=== PATIENT | female | born 1935 | race Caucasian/White ===

== ENCOUNTER 2017-01-06 13:02 | Emergency (ER) | payer MEDICARE ==
[2017-01-06 13:57] LABS: Blood, Urine Negative (Negative); Clarity Clear (Clear); Glucose, Urine (Dipstick) Negative (Negative); Leukocyte Negative (Negative); Nitrite Negative (Negative); Protein, Urine (Dipstick) Negative (Neg-Trace); Specific Gravity, Urine 1.025 (1.005-1.030); Urobilinogen 0.2 mg/dL (0.2-1.0); pH, Urine 5.5 (5.0-9.0)
[2017-01-06 13:59] LABS: Bilirubin Negative (Negative); Icto Negative (Negative)
== END 2017-01-06 14:41 | disposition home or self-care (01) ==
LOC: NAV ERS 13:02
DX: R33.9 Retention of urine, unspecified (principal); I25.10 Atherosclerotic heart disease of native coronary artery without angina pectoris; E03.9 Hypothyroidism, unspecified; K21.9 Gastro-esophageal reflux disease without esophagitis; E78.5 Hyperlipidemia, unspecified; E78.00 Pure hypercholesterolemia, unspecified; I10 Essential (primary) hypertension; M10.9 Gout, unspecified; I49.9 Cardiac arrhythmia, unspecified; Z79.899 Other long term (current) drug therapy
CPT/HCPCS: 51702; 81003; 87086

== ENCOUNTER 2017-01-11 18:31 | Emergency (ER) | payer MEDICARE ==
[2017-01-11 19:50] LABS: Blood, Urine Large (Negative); Clarity Hazy (Clear); Glucose, Urine (Dipstick) Negative (Negative); Leukocyte Trace (Negative); Nitrite Negative (Negative); Protein, Urine (Dipstick) > or equal to 300 mg/dL (Neg-Trace); Specific Gravity, Urine 1.025 (1.005-1.030); Urobilinogen 0.2 mg/dL (0.2-1.0); pH, Urine 5.5 (5.0-9.0)
[2017-01-11 19:54] LABS: Anion Gap 16 mmol/L (10-20); BUN (Urea Nitrogen) 20 mg/dL (9.8-20.1); Calc. Creatinine Clearance 0 mL/min (70-130); Calcium 9.1 mg/dL (7.8-10.44); Carbon Dioxide 22 mmol/L (23-31); Chloride 106 mmol/L (98-107); Estimated GFR-MDRD 78; Glucose 98 mg/dL (83-110); Potassium 3.5 mmol/L (3.5-5.1); Sodium 140 mmol/L (136-145)
[2017-01-11 19:58] LABS: Icto Negative (Negative); RBC/HPF GREATER THAN 50-TNTC HPF (0-3); Squamous Epithelial 0-3 HPF (0-3); WBC/HPF 0-3 HPF (0-3)
== END 2017-01-11 20:04 | disposition home or self-care (01) ==
LOC: NAV ERS 18:31
DX: T83.098A Other mechanical complication of other urinary catheter, initial encounter (principal); I25.10 Atherosclerotic heart disease of native coronary artery without angina pectoris; E03.9 Hypothyroidism, unspecified; K21.9 Gastro-esophageal reflux disease without esophagitis; E78.5 Hyperlipidemia, unspecified; I10 Essential (primary) hypertension; Z79.899 Other long term (current) drug therapy
CPT/HCPCS: 80048; 81003; 81015; 99283

== ENCOUNTER 2017-01-23 10:02 | Outpatient (CLI) | payer MEDICARE ==
[2017-01-23 12:24] LABS: #Basophils 0.1 thou/uL (0.0-0.2); #Eosinphils 0.2 thou/uL (0.0-0.7); #Lymphocytes 1.8 thou/uL (1.20-3.40); #Monocytes 0.7 thou/uL (0.11-0.59); #Neutrophils 4.5 thou/uL (1.40-6.50); %Basophils 1.5 % (0.0-1.0); %Eosinophils 2.9 % (0.0-10.0); %Lymphocytes 24.7 % (21.0-51.0); %Monocytes 9.1 % (0.0-10.0); %Neutrophils 61.8 % (42.0-75.0); Hemoglobin 12.8 g/dL (12.0-16.0); Mean Corpuscular HGB CONC 31.7 g/dL (32.0-36.0); Mean Corpuscular Hemoglobin 27.5 pg (27.0-31.0); Mean Corpuscular Volume 86.5 fl (81.0-99.0); Mean Platelet Volume 5.8 fL (7.4-10.4); Platelet Count 236 thou/uL (130-400); RBC Distribution Width 12.9 % (11.5-14.5); Red Blood Cell (RBC) Count 4.66 mill/uL (4.20-5.40); White Blood Cell (WBC) Count 7.3 thou/uL (4.8-10.8)
[2017-01-23 12:45] LABS: ALT (SGPT) 42 U/L (8-55); AST (SGOT) 27 U/L (5-34); Albumin 4.2 g/dL (3.4-4.8); Alkaline Phosphatase 126 U/L (40-150); Anion Gap 16 mmol/L (10-20); BUN (Urea Nitrogen) 14 mg/dL (9.8-20.1); Bilirubin, Direct 0.3 mg/dL (0.1-0.3); Bilirubin, Total 0.5 mg/dL (0.2-1.2); Calc. Creatinine Clearance 0 mL/min (70-130); Calcium 9.3 mg/dL (7.8-10.44); Carbon Dioxide 22 mmol/L (23-31); Cardiac Risk 2.1 (Less than 4.5); Chloride 109 mmol/L (98-107); Cholesterol 174 mg/dl (< 200 Desired); Estimated GFR-MDRD 80; Glucose 71 mg/dL (83-110); HDL Cholesterol 81 mg/dL (>60 Neg Risk); LDL Cholesterol, Calculated 79 mg/dL; Potassium 4.3 mmol/L (3.5-5.1); Protein, Total 6.6 g/dL (6.0-8.3); Sodium 143 mmol/L (136-145); Triglycerides 70 mg/dL (Less than 150)
[2017-01-23 13:34] LABS: Hemoglobin A1c 5.6 % (4.0-6.0)
== END 2017-01-23 10:03 ==
LOC: NAVSJIPCSP 10:02
PROVIDERS: ATTEND Family Medicine
DX: E78.00 Pure hypercholesterolemia, unspecified (principal); E03.9 Hypothyroidism, unspecified; I10 Essential (primary) hypertension; Z79.899 Other long term (current) drug therapy
CPT/HCPCS: 36415; 80048; 80061; 80076; 83036; 84443; 85025

== ENCOUNTER 2018-01-20 07:26 | Outpatient (CLI) | payer MEDICARE ==
--- NOTE | 2018-01-20 16:59 | ULT ---
SONOGRAM RIGHT UPPER QUADRANT: HISTORY: Upper abdomen pain. Palpable mass. FINDINGS: A heterogeneously hypoechoic lesion, superficial to the anterior abdominal wall and region of palpabl e area, is 1.8 cm in length x 0.9 cm in width x 0.9 cm in depth. The gallbladder has a normal appearance. The common duct is 0.5 cm. the liver is unremarkable. No free fluid. Cyst of the right kidney measures up to 3.9 cm. IMPRESSION: 1. Lesion deep within the subcutaneous tissues of the upper anterior abdomen and region of palpable concern may represent herniation of intraabdominal fat. CT abdomen with contrast could be used for b lita characterization. 2. Right renal cyst. POS: [facility]
== END 2018-01-20 07:27 | disposition home or self-care (01) ==
LOC: NAV ULT 07:26
PROVIDERS: ATTEND Family Medicine
DX: R19.06 Epigastric swelling, mass or lump (principal); N28.1 Cyst of kidney, acquired; R93.3 Abnormal findings on diagnostic imaging of other parts of digestive tract
CPT/HCPCS: 76705

== ENCOUNTER 2018-08-15 15:03 | Emergency (ER) | payer MEDICARE ==
--- NOTE | 2018-08-15 16:23 | RAD ---
0849 ACUTE ABDOMINAL SERIES FRONTAL VIEW CHEST TWO VIEW ABDOMEN 08/15/18 INDICATION: Constipation, pain. FINDINGS: There is enlargement of the cardiac silhouette notably at the level of the right atrium. There is a s uperimposed density that may relate to moderate sized hiatal hernia, as well. Vascular calcification and evidence of prior sternotomy. The lungs are hyperinflated. No free air seen beneath the hemidiaph ragms. Bowel gas pattern is nonobstructed. There is extensive hardware overlying the lumbar spine and diffuse osseous degenerative change. IMPRESSION: CHF. Possibility of superimposed moderate sized hiatal hernia suggested. COPD. Nonobstructive bowel gas pattern. POS: [facility]
[2018-08-15] MEDS ORDERED: Fleet Enema 133 ML BOT ONE (16:29)
== END 2018-08-15 19:15 | disposition home or self-care (01) ==
LOC: NAV ERS 15:03
DX: K59.00 Constipation, unspecified (principal); I25.10 Atherosclerotic heart disease of native coronary artery without angina pectoris; I48.91 Unspecified atrial fibrillation; K21.9 Gastro-esophageal reflux disease without esophagitis; E03.9 Hypothyroidism, unspecified; K58.9 Irritable bowel syndrome, unspecified; E78.5 Hyperlipidemia, unspecified; I10 Essential (primary) hypertension; Z79.899 Other long term (current) drug therapy; Z79.891 Long term (current) use of opiate analgesic
CPT/HCPCS: 74022

== ENCOUNTER 2018-12-31 14:39 | Emergency (ER) | payer MEDICARE ==
[2018-12-31 15:12] LABS: Bilirubin Negative (Negative); Blood, Urine Trace (Negative); Glucose, Urine (Dipstick) Negative (Negative); Leukocyte Negative (Negative); Nitrite Negative (Negative); Protein, Urine (Dipstick) 30 mg/dL (Neg-Trace); Urobilinogen 0.2 mg/dL (Less than 2)
[2018-12-31 15:25] LABS: Clarity SL HAZY (Clear)
[2018-12-31 15:27] LABS: Bacteria/HPF Rare-Few HPF (None Seen); RBC/HPF 0-3 HPF (0-3); WBC/HPF 0-3 HPF (0-3)
[2018-12-31] MEDS ORDERED: Sodium Chloride 0.9% 1,000 ML ONE (15:47)
[2018-12-31 16:03] LABS: #Basophils 0.1 thou/uL (0.0-0.2); #Eosinphils 0.1 thou/uL (0.0-0.7); #Monocytes 0.8 thou/uL (0.11-0.59); #Neutrophils 4.5 thou/uL (1.40-6.50); %Basophils 1.5 % (0.0-1.0); %Eosinophils 1.7 % (0.0-10.0); %Lymphocytes 26.1 % (21.0-51.0); %Monocytes 10.6 % (0.0-10.0); %Neutrophils 60.1 % (42.0-75.0); Hemoglobin 13.4 g/dL (12.0-16.0); Mean Corpuscular HGB CONC 31.5 g/dL (32.0-36.0); Mean Corpuscular Hemoglobin 27.5 pg (27.0-31.0); Mean Corpuscular Volume 87.2 fL (78.0-98.0); Mean Platelet Volume 6.6 fL (7.4-10.4); Platelet Count 198 thou/uL (130-400); RBC Distribution Width 12.5 % (11.5-14.5); Red Blood Cell (RBC) Count 4.87 mill/uL (4.20-5.40); White Blood Cell (WBC) Count 7.5 thou/uL (4.8-10.8)
[2018-12-31 16:19] LABS: ALT (SGPT) 19 U/L (8-55); AST (SGOT) 16 U/L (5-34); Albumin 3.8 g/dL (3.4-4.8); Alkaline Phosphatase 144 U/L (40-150); Anion Gap 14 mmol/L (10-20); BUN (Urea Nitrogen) 19 mg/dL (9.8-20.1); Bilirubin, Total 0.5 mg/dL (0.2-1.2); CRP (Inflammatory) Less than 0.50 mg/dL (= or < 0.5); Calc. Creatinine Clearance 0 mL/min (70-130); Calcium 9.4 mg/dL (7.8-10.44); Carbon Dioxide 23 mmol/L (23-31); Chloride 107 mmol/L (98-107); Estimated GFR-MDRD 73; Globulin 2.2 g/dL (2.4-3.5); Glucose 87 mg/dL (83-110); Potassium 4.2 mmol/L (3.5-5.1); Sodium 140 mmol/L (136-145)
--- NOTE | 2018-12-31 18:14 | CT ---
CT ABDOMEN AND PELVIS WITHOUT CONTRAST CT LUMBAR SPINE WITHOUT CONTRAST: 12/31/18 HISTORY: Constant urine flow. Low back pain. FINDINGS: Absence of oral and IV contrast reduces the sensitivity of the exam particularly for the evaluation o f solid organs and bowel. The lung bases are unremarkable. A moderate sized hiatal hernia is present. No calcified gallstones a re noted. There is a fat containing ventral hernia in the upper abdominal wall within the midline. No calculi is seen in the kidneys, ureters or the urinary bladder. No hydroureteronephrosis is seen o n either side. There is a 3.3 cm cyst in the right kidney. There is a Sosa catheter in the urinary b ladder with free air likely due to instrumentation. No free air or free fluid is seen in the abdomen or pelvis. The small bowel loops are not abnormally dilated. There are vascular calcifications without evidence of aneurysmal dilatation of the abdominal aorta. There are postop changes with metallic hardware in the lumbar spine. There is artifact arising from t he metallic hardware reducing the sensitivity of the exam. There are degenerative changes in the spin e. No compression fracture is identified. There are bilateral pedicle screws at L4, L5 and S1 levels. There is suggestion of a fracture involving the left pedicle screw posteriorly. There are postop ch anges seen in the retroperitoneum. There are posterior fixation devices at L3 and L4 levels. IMPRESSION: 1. Moderate sized hiatal hernia. 2. Right renal cyst. 3. No CT evidence of urinary tract calculi or obstruction. 4. Postop changes in the lumbar spine with probable fracture of the left pedicle screw at L4 lev el. POS: [facility]
== END 2018-12-31 18:54 | disposition short-term general hospital (02) ==
LOC: NAV ERS 14:39
DX: R33.9 Retention of urine, unspecified (principal); I10 Essential (primary) hypertension; I25.10 Atherosclerotic heart disease of native coronary artery without angina pectoris; E03.9 Hypothyroidism, unspecified; K21.9 Gastro-esophageal reflux disease without esophagitis; K58.9 Irritable bowel syndrome, unspecified; E78.5 Hyperlipidemia, unspecified; M10.9 Gout, unspecified; Z79.891 Long term (current) use of opiate analgesic; Z79.899 Other long term (current) drug therapy
CPT/HCPCS: 51702; 72131; 74176; 80053; 81003; 81015; 83605; 85025; 86140; 87086; J7050

== ENCOUNTER 2019-01-01 19:20 | Emergency (ER) | payer MEDICARE | END 2019-01-01 20:10 | disposition home or self-care (01) | LOC: NAV ERS 19:20 | DX: R33.9 Retention of urine, unspecified (principal); I25.10 Atherosclerotic heart disease of native coronary artery without angina pectoris; I48.91 Unspecified atrial fibrillation; K21.9 Gastro-esophageal reflux disease without esophagitis; E78.5 Hyperlipidemia, unspecified; E03.9 Hypothyroidism, unspecified; M10.9 Gout, unspecified; Z79.891 Long term (current) use of opiate analgesic; Z79.899 Other long term (current) drug therapy | CPT/HCPCS: 99283 ==